=== PATIENT | female | born 1975 | race Caucasian/White ===

== ENCOUNTER 2020-07-20 09:43 | Day surgery (SDC) | payer OTHER, SELFPAY ==
[2020-07-20] VITALS (11 sets, daily range): BP systolic 112–139; BP diastolic 74–95; PULSE 89–120; RESP 14–24; TEMP 36.2–36.9; O2SAT 93–98; BMI 49.0
[2020-07-20] MEDS: LACTATED RINGERS 1,000 ML 42 ML IV (10:18)
--- NOTE | 2020-07-20 11:09 | PM.PREOP ---
Pre-operative Note COVID-19 COVID-19 status: Negative Result date/Date tested (Pos, Neg/Pending): 07/18/20 Interval Note History & Physical reviewed/Exam performed by Physician: Yes Changes to H&P: No
--- NOTE | 2020-07-20 11:42 | SUR.PREOP ---
1131[] . Monitoring initiated and maintained throughout procedure. Oxygen at 2LNP; medications given (by anesthesia) per anesthesiologist instructions. Patient remained stable throughout procedure, no adverse reactions noted. Block end time [1141.
--- NOTE | 2020-07-20 12:23 | PM.PROC.1 ---
Procedures Date/Time Date of procedure: 07/20/20 Time of procedure: 11:30 General Procedure description: Ultrasound guided interscalene brachial plexus nerve block for post op pain control after right arthroscopic shoulder subacromial decompression by Dr. Mazariegos. Risk and benefits of procedure discussed with patient. ASA monitoring applied to patient. O2 given via nasal cannula. 1 mg Versed and 50 mcg fentanyl given for procedural sedation. Skin site was prepped with chlorhexidine and allowed to fully dry. Sterile gloves, mask, hat and probe cover were used to maintain sterility. 2% lidocaine and 30ga needle was used to make a small skin wheal at needle insertion site. Under ultrasound guidance, a 21ga 50mm Pajunk needle was directed into the interscalene groove (middle/anterior scalenes) near the brachial plexus. Patient reported no parasthesias. After negative aspiration, 12 mL 0.5% ropivicaine and 10mg dexamethasone were injected around brachial plexus. Patient tolerated procedure well.
--- NOTE | 2020-07-20 12:23 | SUR.OPER ---
Lateral on padded OR bed with aponte bag positioner, head on pillow, gel axillary roll in place, bottom leg bent with gel pad under knee to foot, upper leg straight and supported with pillows. Operative arm secured in shoulder positioning suspension device. non-operative arm secured on padded arm board. Safety belt at hip, tape over blanket securing lower legs.
[2020-07-20] MEDS: CEFAZOLIN 2 GM/100 ML FROZ.PIGGY IV (12:42)
[2020-07-20] MEDS: BUPIVACAINE 0.5% W/ EPI (PF) 30 ML VIAL INJ (12:43)
[2020-07-20] MEDS: SODIUM CHLORIDE IRRIG SOLUTION 3,000 ML, EPINEPHrine 1 MG IRR (12:48)
--- NOTE | 2020-07-20 13:01 | P.OP_ITS ---
Operative Date/Time/Diagnoses Date of procedure: 07/20/20 Time of procedure: 13:01 Pre-op diagnosis: Right shoulder labral tear and impingement syndrome Post-op diagnosis: other (Right shoulder impingement syndrome) Procedure & Clinicians Procedure: Right shoulder arthroscopic major debridement Same procedure as scheduled: Yes Indications: The patient is a 44-year-old woman who has had right shoulder pain that has not responded to nonoperative measures. An MRI arthrogram appears to show a possible labral tear. After discussion of the risks benefits and alternative she has agreed to arthroscopy with debridement and potential repair of a labral lesion. Risks discussed included but were not limited to: Failure to improve, stiffness, infection, nerve damage, deep venous thrombosis, pulmonary embolism, stroke, myocardial infarction, permanent paralysis and . Surgeon: Michael Mazariegos Click Yes if Unassisted: Yes Anesthesia Type: General, Peripheral nerve block and Local Operative Notes Findings: 1. Intact glenohumeral cartilage 2. Intact glenohumeral labrum with no sign of a SLAP lesion. There was looseness of the attachment at the anterior superior position consistent with a ?sublabral hole?. 3. Intact glenohumeral ligaments 4. Intact subscapularis 5. Intact biceps 6. Intact supraspinatus 7. Intact infraspinatus 8. Normal axillary pouch with no loose bodies 9. Normal-appearing bursal surface of the rotator cuff 10. Type 2 acromion with small impingement lesion 11. Acromioclavicular joint not visualized due to lack of preoperative symptoms. Closure Type: primary Specimen(s): none sent Prosthetic devices, grafts, tissues, transplants, or devices: None Estimated Blood Loss (mL): 10 Blood products transfused: none Procedure in detail: The patient was seen in the preoperative area where she identified the right shoulder as the operative site. She received preoperative antibiotics and underwent induction of an interscalene block for postoperative pain control. She was taken to the operating room placed in the operating room table in the supine position where she underwent a general anesthetic. She was then repositioned in the left lateral decubitus position with an axillary roll and padding for all pressure points. She was stabilized in this position with a aponte bag and adhesive day. The right arm was prepared from the wrist to the base of the neck with ChloraPrep in the usual fashion and draped through sterile drapes. The arm was placed in balanced skin suspension of 10 lb. The subcutaneous landmarks were outlined on the skin with a marking pen. Portal sites were selected. The posterior portal was created for the arthroscope and an anterior portal created for the outflow cannula. Diagnostic arthroscopy ensued with result given above. I used the outflow cannula to palpate the labrum and there was no evidence for a labral tear. The arthroscope was then repositioned the subacromial space. There was evident 1st for an impingement lesion and a type 2 acromion. The type 2 acromion was then converted to a type 1 acromion using the cutting block technique. At this point all arthroscopic equipment was removed. The wounds were closed with 4-0 Monocryl and Steri- Strips. The subcutaneous tissues were injected with 10 mL of 0.5% Marcaine with epinephrine and an additional 10 mL of the same solution was injected in the subacromial space. Dressings of sterile 4x4s, ABD and adhesive dressing were applied followed by a sling and the patient was transported to the recovery room in good condition having tolerated the procedure well. Complications: none Post-operative Condition: stable Disposition: PACU Plan for aftercare: The patient will be maintained on a standard subacromial decompression protocol with physical therapy for strengthening the rotator cuff and periscapular muscles. She will be returned to work in light duty in approximately 2 and half weeks.
[2020-07-20] MEDS: OXYCODONE/ACETAMINOPHEN 5/325 TABLET 1 TAB PO (13:20)
[2020-07-20] MEDS: OXYCODONE IR 5 MG TABLET PO (13:39)
== END 2020-07-20 14:52 | disposition home or self-care (01) ==
PROVIDERS: PCP Family Medicine; Referring Provider Orthopaedic Surgery; Visit Provider Orthopaedic Surgery
PROC: 0RQJ4ZZ Repair Right Shoulder Joint, Percutaneous Endoscopic Approach (ICD-10-PCS; CPT 29807; principal; 2020-07-20 11:45)
DX: M75.41 Impingement syndrome of right shoulder (principal); S43.491A Other sprain of right shoulder joint, initial encounter; G47.33 Obstructive sleep apnea (adult) (pediatric); F17.210 Nicotine dependence, cigarettes, uncomplicated; E66.9 Obesity, unspecified; Z68.42 Body mass index [BMI] 45.0-49.9, adult; X50.1XXA Overexertion from prolonged static or awkward postures, initial encounter; Y93.F2 Activity, caregiving, lifting; Y92.9 Unspecified place or not applicable; Y99.0 Civilian activity done for income or pay
CPT/HCPCS: 29823; 64450; J0171; J0690; J1100; J1885; J2250; J2405; J2704; J3010